=== PATIENT | female | born 1995 | race Caucasian/White ===

== ENCOUNTER 2025-11-05 22:50 | Emergency (ER) | payer SELFPAY ==
[~2025-11-05] VITALS: Ht 162.6 cm; Wt 55.0 kg
[2025-11-05 22:54] VITALS: O2SAT 100
[2025-11-05 23:42] LABS: BASOPHILS % 1.2 % (0.0-2.0); EOSINOPHILS % 0.2 % (0.0-5.0); HEMATOCRIT. 40.9 % (36.0-48.0); HEMOGLOBIN. 13.8 g/dL (12.0-16.0); LYMPHOCYTES % 47.8 % (20.0-50.0); MEAN PLATELET VOLUME 8.0 fl (7.4-10.4); MONOCYTES % 7.7 % (2.0-8.0); NEUTROPHILS % 43.1 % (40.0-76.0); PLATELET 95 x1000/uL (130-400); RED BLOOD CELL COUNT 4.27 mill/uL (4.2-5.4); RED CELL DISTRIBUTION WIDTH 13.3 % (11.6-14.6)
[2025-11-05 23:54] LABS: CREATININE 0.7 mg/dL (0.6-1.0); UREA NITROGEN BLOOD 5 mg/dL (9-23)
[2025-11-05 23:55] LABS: ASPARTATE AMINOTRANSFERASE 235 IU/L (<34); PROTEIN TOTAL 7.0 g/dL (6.0-8.3)
[2025-11-05 23:56] LABS: BILIRUBIN DIRECT 0.2 mg/dL (<=3.0); BILIRUBIN TOTAL 0.6 mg/dL (0.1-1.0)
[2025-11-05] MEDS: SODIUM CHLORIDE 0.9% 1,000 ML IV ONE (23:59)
[2025-11-06 00:06] LABS: ETHANOL BLOOD 300 mg/dL (<10)
[2025-11-06] MEDS: POTASSIUM CHLORIDE 20MEQ/PACKET PO NR (02:23)
[2025-11-06 03:36] VITALS: BP 132/91; PULSE 85; RESP 14; TEMP 36.7; O2SAT 99
== END 2025-11-06 03:38 | disposition home or self-care (01) ==
LOC: ER 22:50
DX: T51.0X1A Toxic effect of ethanol, accidental (unintentional), initial encounter (principal); E87.6 Hypokalemia; X58.XXXA Exposure to other specified factors, initial encounter; Y93.89 Activity, other specified; Y92.89 Other specified places as the place of occurrence of the external cause; Y99.8 Other external cause status; Y90.8 Blood alcohol level of 240 mg/100 ml or more
CPT/HCPCS: 80076; 80048; 80320; 83735; 85025; 36415; 96360; 96361; 99283; J7030; G0480